=== PATIENT | female | born 1955 | race African-American/Black ===

== ENCOUNTER 2019-01-18 16:39 | Emergency (ER) | payer MEDICAID ==
[~2019-01-18] VITALS: Ht 198.1 cm; Wt 123.0 kg
[2019-01-18] MEDS ORDERED: IBUPROFEN 400MG TABLET PO ONE (21:30)
[2019-01-18 21:55] VITALS: BP 140/68
== END 2019-01-18 21:56 | disposition home or self-care (01) ==
LOC: ER 16:39
DX: S09.8XXA Other specified injuries of head, initial encounter (principal); S39.012A Strain of muscle, fascia and tendon of lower back, initial encounter; S16.1XXA Strain of muscle, fascia and tendon at neck level, initial encounter; I10 Essential (primary) hypertension; M19.90 Unspecified osteoarthritis, unspecified site; V43.52XA Car driver injured in collision with other type car in traffic accident, initial encounter; Y93.9 Activity, unspecified; Y92.410 Unspecified street and highway as the place of occurrence of the external cause
CPT/HCPCS: 99284

== ENCOUNTER 2022-10-13 13:44 | Emergency (ER) | payer MEDICAID, MEDICARE ==
[~2022-10-13] VITALS: Ht 198.1 cm; Wt 118.0 kg
[2022-10-13 13:52] VITALS: BP 117/65
== END 2022-10-14 03:18 | disposition left against medical advice (07) ==
LOC: ER 13:44
DX: Z53.21 Procedure and treatment not carried out due to patient leaving prior to being seen by health care provider (principal); M19.90 Unspecified osteoarthritis, unspecified site; I10 Essential (primary) hypertension; Z98.890 Other specified postprocedural states
CPT/HCPCS: 93005